=== PATIENT | male | born 1960 | race Caucasian/White ===

== ENCOUNTER 2019-11-20 20:47 | Emergency (ER) | payer OTHER, SELFPAY ==
[2019-11-20 20:48] VITALS: BP 142/96; PULSE 83; RESP 16; TEMP 36.3; O2SAT 96; BMI 22.8
--- NOTE | 2019-11-20 21:09 | ED.DCSUM_ITS ---
- ER Visit Summary Date of Service: 11/20/19 Chief Complaint: Laceration History of Present Illness: The patient is a [address] Dixon. Reports that just prior to coming emerge department he dropped a knife onto his left foot. He was barefoot when he did this. He reports he is a burning pain is 5-1 0 at worst and 3-10 currently. Is worsened by movement and relieved by rest. His tetanus is up-to-date. He denies any paresthesias distally. Physical Examination: Vitals: Stable. Afebrile. General: Well-nourished and well-developed. Head: Normocephalic atraumatic. Neck: Supple, no lymphadenopathy. No JVD. Nontender. Cardiovascular: Regular rate and rhythm. No murmurs. Respiratory: No respiratory distress. Clear to auscultation bilaterally. Abdominal: Soft, nontender, nondistended, normal bowel sounds. No guarding, rebound, or peritoneal signs. Back: Nontender. Extremities: To the top of his left foot over the distal portion of his fourth metatarsal there is a 1.5 cm L-shaped laceration. He is neuro vas intact distal to this., no edema. Skin: Normal color, no rash. Neurologic: Alert and oriented ?3. Cranial nerves II through XII are intact. Normal strength and sensation. Psych: Normal affect. Emergency Department Course and Treatment: Patient refused pain medications. He is resting comfortably. Treatment Plan: Patient be discharged instructions to follow-up with his primary care physician and suture removal in 10 to 14 days. Return to the emergency department for any worsening symptoms. Disposition: To home in improved and stable condition. Impression: 1 1. Laceration left foot, 1.5 cm, repaired. Procedure note: Wound was cleansed with chlorhexidine soap. Anesthetized with 1% lidocaine without epinephrine. Copiously irrigated with normal saline. Wound was explored there is no foreign material present. It was closed with 3 simple interrupted 4- 0 ethilon sutures. The patient tolerated it well. This note was generated with [employer] dictation software. It may contain incorrect words, spelling, and punctuation that were not noted in review of the chart prior to signing ED Disposition - Plan for ED Patient: Disposition: Home or Assisted Living Instructions: LACERATION, Extrem (Suture, Staple or Tape) Referrals: Darryl Dixon [Primary Care Provider] - 10-14 Days suture removal
[2019-11-20 21:48] VITALS: RESP 17
== END 2019-11-20 21:49 | disposition home or self-care (01) ==
PROVIDERS: Emergency Provider Emergency Medicine
DX: S91.312A Laceration without foreign body, left foot, initial encounter (principal); W20.8XXA Other cause of strike by thrown, projected or falling object, initial encounter; F17.210 Nicotine dependence, cigarettes, uncomplicated
CPT/HCPCS: 12001; 99283

== ENCOUNTER 2021-11-22 16:47 | Outpatient (CLI) | payer MEDICARE, SELFPAY | END 2021-11-22 23:59 | disposition short-term general hospital (02) | LOC: LABSPEC 16:48 | PROVIDERS: Visit Provider Nurse Practitioner Family | DX: Z20.822 Contact with and (suspected) exposure to COVID-19 (principal) | CPT/HCPCS: 87635; U0003; U0005 ==

== ENCOUNTER → 2022-02-20 | Outpatient (CLI) | payer BC, SELFPAY ==
[2022-02-20 17:06] LABS: Absolute Lymphocyte Count 1.63 X10^3/uL (0.83-4.51); Absolute Neutrophil Count 4.8 X10^3/uL (2.0-7.7); Basophil# 0.05 X10^3/uL; Basophil% 0.7 % (0-1); Eosinophil# 0.24 X10^3/uL; Eosinophils% 3.3 % (0-5); Hematocrit 51.5 % (40-54); Hemoglobin 17.3 g/dL (13.0-16.5); Lymphocyte # 1.63 X10^3/ul (0.83-4.51); Lymphocyte % 22.1 % (19-41); Mean Corp Hgb Conc 33.6 g/dL (32-36); Mean Corpuscular Hgb 31.4 pg (27.0-32.0); Mean Corpuscular Volume 93.5 fL (80-94); Mean Platelet Vol. 10.9 fl (6.2-12.0); Monocyte# 0.63 X10^3/uL; Monocyte% 8.6 % (0-10); NRBC Flagged by Analyzer 0 % (0-5); Neutrophil # 4.79 X10^3/uL (2.7-7.7); Platelet Count 207 K/mm3 (150-450); RBC Distribution Width CV 12.7 % (11.6-14.6); RBC Distribution Width SD 43.6 fl (35.1-43.9); Red Blood Count 5.51 M/mm3 (4.6-6.2); White Blood Count 7.4 K/mm3 (4.4-11.0)
[2022-02-20 17:28] LABS: Hemoglobin A1c 5.2 % (3.8-5.6)
[2022-02-20 18:29] LABS: Vitamin B12 283 pg/mL (211-911); Vitamin D,25 Hydroxy 27.7 ng/mL
[2022-02-20 19:23] LABS: ALB/GLOB Ratio 1.2 RATIO (0.9-2.4); AST(SGOT) 18 U/L (15-37); Alanine Aminotransfer ALT/SGPT 40 U/L (16-61); Albumin, Serum 4.1 g/dL (3.2-5.0); Alkaline Phosphatase 77 U/L (45-117); Anion Gap 7 (5-15); BUN 20 mg/dL (7-18); BUN/Creat Ratio 20.9 RATIO (10-20); Calcium,Total 9.1 mg/dL (8.5-10.1); Chloride 104 mmol/L (98-107); Cholesterol 172 mg/dL (200); Creatinine, Serum 0.96 mg/dL (0.70-1.30); EST Glomerular Filtration Rate 85 mL/min (>60); Est Glom Filt Rate - Afr Amer 102 mL/min (>60); Globulin 3.3 g/dL (2.2-4.2); Glucose 78 mg/dL (74-106); High Density Lipoprotein 44 mg/dL; Potassium 3.8 mmol/L (3.5-5.1); Protein, Total 7.4 g/dL (6.4-8.2); Sodium Level 140 mmol/L (136-145); Triglycerides 145 mg/dL; Very Low Density Lipoprotein 29 mg/dL (5-40)
[2022-02-20 19:24] LABS: PSA,Total- Diagnostic 1.42 ng/mL (0.0-4.0)
== END | disposition home or self-care (01) ==
PROVIDERS: Referring Provider Nurse Practitioner Family; Visit Provider Nurse Practitioner Family
DX: I10 Essential (primary) hypertension (principal); R53.83 Other fatigue; E66.9 Obesity, unspecified
CPT/HCPCS: 80053; 80061; 82306; 82607; 82746; 83036; 84153; 85025

== ENCOUNTER 2023-01-13 03:22 | Emergency (ER) | payer BC, SELFPAY ==
[2023-01-13 03:24] VITALS: BP 168/108; PULSE 69; RESP 16; TEMP 36.4; O2SAT 98
[2023-01-13 03:26] VITALS: BMI 34.4
--- NOTE | 2023-01-13 03:52 | EX.ED.DYSGE1 ---
HPI History of Present Illness Chief Complaint: Rash Narrative Narrative: Patient is a 62-year-old male who presents to the ER with complaint of rash. He states that he switched to Tide with Oxy clean in the last 1 to 2 weeks. He reports he has done a load of laundry and did not seem to have any issues associated with the new detergent. He states today however he was at work and once he returned home and took off his clothes and showered he noticed he was having redness itching and hives along his legs. He reports that as the time passed the rash got more intense and began to blister and spread up to his abdomen and back. He denies any trouble breathing or swallowing and other than the new detergent denies any exposures PFSH PFS Medical History no medical history Home Medications prednisone 10 mg tablet 10 mg PO DAILY #48 TABLETS 01/13/23 [Rx Last Taken Unknown] Allergy/AdvReac Type Severity Reaction Status Date / Time No Known Allergies Allergy Verified 01/13/23 03:23 Surgical History no surgical history Social History Smoking Status: Current every day smoker tobacco type: cigarettes ROS ROS ED Constitutional Constitutional ED: Denies chills or fever(s) Eyes Eyes: Denies change in vision ENT ENT ED: Denies sore throat Cardiovascular Cardiovascular: Denies chest pain Respiratory/Chest Respiratory/Chest: Denies cough or dyspnea Gastrointestinal Gastrointestinal: Denies abdominal pain, diarrhea, melena, nausea or vomiting Genitourinary Genitourinary ED: Denies dysuria or hematuria Musculoskeletal Musculoskeletal: Denies myalgias Integumentary Reports rash Neurologic Neurologic: Denies headache(s) Hematologic/Lymphatic Hematologic/Lymphatic: Denies easy bleeding or easy bruising EXAM Physical Exam Const Vital Signs: 01/13/23 03:24 Temperature 97.5 F L Temperature Source Temporal Pulse Rate 69 Respiratory Rate 16 Blood Pressure 168/108 H Blood Pressure Mean 128 Pulse Ox 98 Oxygen Delivery Method Room Air Positive well nourished and well developed General Appearance ED: well developed HEENT Reports moist mucous membranes HEENT Narrative: No tongue or lip swelling no oral lesions no airway edema or compromise Eyes PERRL and EOMs intact bilaterally Neck supple Resp normal respiratory effort and clear to auscultation bilaterally Cardio regular rate and regular rhythm Extremity normal to inspection Neuro oriented x3 and CN's II-XII intact bilaterally Sensorium / Orientation: alert Psych mental status grossly normal Skin Skin Narrative: Patient has erythematous blanchable hive-like lesions across his abdomen and chest as well as his lower and upper back. The rash also progresses down the legs from the thighs to the ankles and along the medial posterior aspect of both the left and right thigh and lower leg there are multiple blister formations present draining serous fluid. There is no involvement of the palms or soles. Rashes: rashes noted MDM MDM MDM Narrative Medical decision making narrative: Patient presented to the ER hypertensive but otherwise with stable vitals. He reported a sudden onset rash with only new exposure being a change in detergent. There is concern that this could be an infectious rash or HSP or cellulitis or gout however with the report of him beginning a new detergent the rash being erythematous blanchable and urticarial nature and not showing changes of purpura or involvement of the palms or soles or coalescing lesions I do feel this is all contact dermatitis. He has no signs of respiratory distress or airway compromise and therefore there is no need for work-up. Patient will be placed on a Kenalog shot in the ER and a prednisone taper for the next 12 days secondary to the severe contact dermatitis. He was instructed on return precautions and agrees to return to the hospital if those develop. However at this time as the rash appears more of an inflammatory process and not infectious he is otherwise safe for discharge History & Record Review Discussion w/independent historian: Patient Discharge Plan Triage Chief Complaint: Rash ED Provider: Griffin Roberts Dx/Rx/DC Orders Clinical Impression: Contact dermatitis and other eczema due to detergents Instructions: ED Contact Dermatitis Prescriptions: New prednisone 10 mg tablet 10 mg PO DAILY Qty: 48 0RF Rx Instructions: 6 po qd x 3 days, 4 po qd x 3 days, 2 po qd x 3 days, 1 po qd x 3 days Primary Care Provider: Darryl Dixon Referrals: Darryl Dixon [Primary Care Provider] - Activity Restrictions/Additional Instructions: Your history and exam indicate that your rash is related to an inflammatory process most likely related to your new detergent. Therefore please throw this detergent away and get a hypoallergenic detergent or go back to the previous version you had and rewash all your clothes. Take the steroid as directed to reduce the inflammatory process and after approximately 4 to 7 days you should notice improvement of the rash as long as you are no longer exposed to the offending agent. If you develop a temperature over 100.4 have dark/bloody urine or develop abdominal discomfort or blood in your stool please return for repeat evaluation. Disposition Disposition: Home, Self Care
[2023-01-13] MEDS: Triamcinolone Acetonide 40 MG/ML Vial 80 MG IM (04:02)
[2023-01-13 04:39] VITALS: BP 154/89; PULSE 79; RESP 18; O2SAT 97
== END 2023-01-13 04:40 | disposition home or self-care (01) ==
PROVIDERS: Emergency Provider Emergency Medicine; Visit Provider Emergency Medicine
DX: L24.0 Irritant contact dermatitis due to detergents (principal); F17.210 Nicotine dependence, cigarettes, uncomplicated
CPT/HCPCS: 96372; 99283

== ENCOUNTER → 2023-01-19 | Outpatient (CLI) | payer BC, SELFPAY ==
[2023-01-19 16:08] LABS: PSA,Total - Annual Screen 0.98 ng/mL (0.00-4.00)
[2023-01-19 16:13] LABS: ALB/GLOB Ratio 1.1 RATIO (0.9-2.4); AST(SGOT) 14 U/L (15-37); Alanine Aminotransfer ALT/SGPT 44 U/L (16-61); Albumin, Serum 3.8 g/dL (3.2-5.0); Alkaline Phosphatase 77 U/L (45-117); Anion Gap 9 (5-15); BUN 24 mg/dL (7-18); BUN/Creat Ratio 21.4 RATIO (10-20); CRP < 2.90 mg/L (0.0-3.0); Calcium,Total 9.6 mg/dL (8.5-10.1); Chloride 103 mmol/L (98-107); Cholesterol 184 mg/dL (200); Creatinine, Serum 1.12 mg/dL (0.70-1.30); EST Glomerular Filtration Rate 70 mL/min (>60); Est Glom Filt Rate - Afr Amer 85 mL/min (>60); Globulin 3.4 g/dL (2.2-4.2); Glucose 127 mg/dL (74-106); High Density Lipoprotein 68 mg/dL; Potassium 4.3 mmol/L (3.5-5.1); Protein, Total 7.2 g/dL (6.4-8.2); Sodium Level 140 mmol/L (136-145); Triglycerides 120 mg/dL; Very Low Density Lipoprotein 24 mg/dL (5-40)
[2023-01-19 16:14] LABS: Vitamin B12 328 pg/mL (211-911); Vitamin D,25 Hydroxy 28.7 ng/mL
[2023-01-19 16:22] LABS: Absolute Lymphocyte Count 1.41 X10^3/uL (0.83-4.51); Absolute Neutrophil Count 13.1 X10^3/uL (2.0-7.7); Basophil# 0.08 X10^3/uL; Basophil% 0.5 % (0-1); Eosinophil# 0.14 X10^3/uL; Eosinophils% 0.9 % (0-5); Hematocrit 52.6 % (40-54); Hemoglobin 17.5 g/dL (13.0-16.5); Lymphocyte # 1.41 X10^3/ul (0.83-4.51); Lymphocyte % 8.9 % (19-41); Mean Corp Hgb Conc 33.3 g/dL (32-36); Mean Corpuscular Hgb 30.6 pg (27.0-32.0); Mean Corpuscular Volume 92.1 fL (80-94); Mean Platelet Vol. 10.8 fl (6.2-12.0); Monocyte# 0.74 X10^3/uL; Monocyte% 4.7 % (0-10); NRBC Flagged by Analyzer 0 % (0-5); Neutrophil # 13.14 X10^3/uL (2.7-7.7); Neutrophil % 83.4 % (47-70); Platelet Count 266 K/mm3 (150-450); RBC Distribution Width CV 12.8 % (11.6-14.6); RBC Distribution Width SD 43.4 fl (35.1-43.9); Red Blood Count 5.71 M/mm3 (4.6-6.2); White Blood Count 15.8 K/mm3 (4.4-11.0)
[2023-01-19 16:32] LABS: Erythrocyte Sedimentation Rate 4 mm/hr (0-20)
[2023-01-19 16:47] LABS: Hemoglobin A1c 5.4 % (3.8-5.6)
[2023-01-22 13:08] LABS: B. henselae IgG Negative titer (Neg:<1:320); B. henselae IgM Negative titer (Neg:<1:100); B. quintana IgG Negative titer (Neg:<1:320)
[2023-01-22 15:15] LABS: B. quintana IgM Negative titer (Neg:<1:100)
[2023-01-24 00:07] LABS: Lyme IgG P18 Ab Absent (.); Lyme IgG P23 Ab Absent (.); Lyme IgG P28 Ab Absent (.); Lyme IgG P30 Ab Absent (.); Lyme IgG P39 Ab Absent (.); Lyme IgG P41 Ab Present (.); Lyme IgG P45 Ab Absent (.); Lyme IgG P58 Ab Absent (.); Lyme IgG P66 Ab Absent (.); Lyme IgG P93 Ab Absent (.); Lyme IgM P23 Ab Absent (.); Lyme IgM P39 Ab Absent (.); Lyme IgM P41 Ab Absent (.)
[2023-01-24 09:01] LABS: Lyme IgG WB Interpretation Negative (.); Lyme IgM WB Interpretation Negative (.)
== END | disposition home or self-care (01) ==
PROVIDERS: Visit Provider Nurse Practitioner Family
DX: R21 Rash and other nonspecific skin eruption (principal); R22.42 Localized swelling, mass and lump, left lower limb; M25.69 Stiffness of other specified joint, not elsewhere classified; E55.9 Vitamin D deficiency, unspecified; E53.8 Deficiency of other specified B group vitamins; Z12.5 Encounter for screening for malignant neoplasm of prostate
CPT/HCPCS: 80053; 80061; 82306; 82607; 82746; 83036; 84153; 85025; 85652; 86140; 86611; 86617; G0103

== ENCOUNTER → 2023-01-28 | Outpatient (CLI) | payer BC, SELFPAY ==
[2023-01-28 13:12] LABS: Absolute Lymphocyte Count 1.84 X10^3/uL (0.83-4.51); Absolute Neutrophil Count 9.2 X10^3/uL (2.0-7.7); Basophil% 0.8 % (0-1); Eosinophil# 0.34 X10^3/uL; Eosinophils% 2.8 % (0-5); Hematocrit 52.5 % (40-54); Hemoglobin 17.5 g/dL (13.0-16.5); Lymphocyte # 1.84 X10^3/ul (0.83-4.51); Lymphocyte % 14.9 % (19-41); Mean Corp Hgb Conc 33.3 g/dL (32-36); Mean Corpuscular Hgb 31.3 pg (27.0-32.0); Mean Corpuscular Volume 93.9 fL (80-94); Monocyte# 0.82 X10^3/uL; Monocyte% 6.6 % (0-10); NRBC Flagged by Analyzer 0 % (0-5); Neutrophil # 9.15 X10^3/uL (2.7-7.7); Neutrophil % 74.1 % (47-70); Platelet Count 220 K/mm3 (150-450); RBC Distribution Width CV 13.1 % (11.6-14.6); Red Blood Count 5.59 M/mm3 (4.6-6.2); White Blood Count 12.4 K/mm3 (4.4-11.0)
[2023-01-28 13:28] LABS: Erythrocyte Sedimentation Rate 4 mm/hr (0-20)
== END | disposition home or self-care (01) ==
LOC: LABSPEC 12:41
PROVIDERS: PCP Family Medicine; Referring Provider Nurse Practitioner Family; Visit Provider Nurse Practitioner Family
DX: R21 Rash and other nonspecific skin eruption (principal); R22.42 Localized swelling, mass and lump, left lower limb; M25.69 Stiffness of other specified joint, not elsewhere classified; L03.115 Cellulitis of right lower limb
CPT/HCPCS: 85025; 85652

== ENCOUNTER → 2023-08-04 | Outpatient (CLI) | payer BC, SELFPAY ==
[2023-08-04 19:27] LABS: Absolute Lymphocyte Count 2.29 X10^3/uL (0.83-4.51); Absolute Neutrophil Count 6.2 X10^3/uL (2.0-7.7); Basophil# 0.08 X10^3/uL; Basophil% 0.8 % (0-1); Eosinophil# 0.23 X10^3/uL; Eosinophils% 2.4 % (0-5); Lymphocyte # 2.29 X10^3/ul (0.83-4.51); Lymphocyte % 23.8 % (19-41); Mean Corp Hgb Conc 32.6 g/dL (32-36); Mean Corpuscular Hgb 30.3 pg (27.0-32.0); Mean Corpuscular Volume 92.9 fL (80-94); Mean Platelet Vol. 10.8 fl (6.2-12.0); Monocyte% 8.3 % (0-10); NRBC Flagged by Analyzer 0 % (0-5); Neutrophil # 6.18 X10^3/uL (2.7-7.7); Neutrophil % 64.3 % (47-70); Platelet Count 237 K/mm3 (150-450); RBC Distribution Width CV 12.7 % (11.6-14.6); RBC Distribution Width SD 43.5 fl (35.1-43.9); Red Blood Count 6.07 M/mm3 (4.6-6.2); White Blood Count 9.6 K/mm3 (4.4-11.0)
[2023-08-04 19:43] LABS: ALB/GLOB Ratio 1.1 RATIO (0.9-2.4); AST(SGOT) 15 U/L (15-37); Alanine Aminotransfer ALT/SGPT 43 U/L (16-61); Albumin, Serum 3.7 g/dL (3.2-5.0); Alkaline Phosphatase 88 U/L (45-117); Anion Gap 6 (5-15); BUN 16 mg/dL (7-18); BUN/Creat Ratio 16.1 RATIO (10-20); Calcium,Total 9.8 mg/dL (8.5-10.1); Chloride 103 mmol/L (98-107); Creatinine, Serum 0.99 mg/dL (0.70-1.30); EST Glomerular Filtration Rate 81 mL/min (>60); Est Glom Filt Rate - Afr Amer 98 mL/min (>60); Globulin 3.4 g/dL (2.2-4.2); Glucose 93 mg/dL (74-106); Potassium 4.5 mmol/L (3.5-5.1); Protein, Total 7.1 g/dL (6.4-8.2); Sodium Level 140 mmol/L (136-145)
[2023-08-04 20:00] LABS: Hematocrit 56.4 % (40-54); POSITIVE COUNT NO; POSITIVE DIFFERENTIAL NO; POSITIVE MORPHOLOGY NO
[2023-08-04 20:02] LABS: Hemoglobin 18.4 g/dL (13.0-16.5)
[2023-08-04 20:03] LABS: Anisocytosis RARE; Macrocytosis RARE; Platelet Estimate ADEQUATE (ADEQ); Red Cell Morphology N CHROM NORMAL (NORM C&C)
[2023-08-06 09:55] LABS: Pathologist Review Reviewed
== END | disposition home or self-care (01) ==
PROVIDERS: PCP Family Medicine; Visit Provider Nurse Practitioner Family
DX: Z01.818 Encounter for other preprocedural examination (principal)
CPT/HCPCS: 80053; 85025

== ENCOUNTER → 2023-08-21 | Outpatient (CLI) | payer SELFPAY ==
--- NOTE | 2023-08-21 12:23 | EKG12_ITS ---
Test Reason : SOB,CP Blood Pressure : / mmHG Vent. Rate : 058 BPM Atrial Rate : 058 BPM P-R Int : 144 ms QRS Dur : 102 ms QT Int : 430 ms P-R-T Axes : 029 -08 081 degrees QTc Int : 422 ms Sinus bradycardia Otherwise normal ECG Confirmed by ANTONIO SINGH, AMARJIT ([id number]), news video editor ADRIANA AZEVEDO ([id number]) on 08/25/2023 12:55:29 PM Referred By: Nicolle Reno Confirmed By:TORI ALVAREZ MD
--- NOTE | 2023-08-21 12:24 | ECHOD_ITS ---
Reason For Study: CHEST PAIN, SOB Procedure This was a 2D Doppler, Color Flow transthoracic echocardiogram. Exam performed in department. Left Ventricle Normal LV size. The estimated ejection fraction is 60 %. No evidence for diastolic dysfunction. No regional wall motion abnormalities noted. Right Ventricle Normal RV size. Normal systolic function. Atria Normal left atrium. Normal right atrium. No doppler evidence for ASD. Mitral Valve There is no mitral valve stenosis. No mitral valve insufficiency. Tricuspid Valve There is no tricuspid stenosis. Unable to estimate RV systolic pressure due to inadequate jet, pulmonary artery pressure probably normal. Aortic Valve Trisinus/trileaflet aortic valve. There is no aortic stenosis. No aortic valve insufficiency. Pulmonic Valve There is no pulmonic valvular stenosis. Trivial pulmonic valve insufficiency. Great Vessels Normal aortic root. Pericardium/Pleural No pericardial effusion. MMode/2D Measurements & Calculations LVIDd: 5.7 cm IVSd: 1.0 cm Ao root diam: 3.5 cm LVIDs: 3.7 cm LVPWd: 1.0 cm FS: 35.2 % LAV(MOD-bp): 52.2 ml LVAd ap4: 32.6 cm2 LVAd ap2: 30.6 cm2 LAV(MOD-bp) Indexed: 21.4 ml/m2 LVLd ap4: 8.5 cm LVLd ap2: 8.7 cm LAV(MOD-sp2): 58.1 ml EDV(MOD-sp4): 104.3 ml EDV(MOD-sp2): 96.3 ml LAV(MOD-sp4): 45.0 ml EDV(sp4-el): 106.0 ml EDV(sp2-el): 91.5 ml LVAs ap4: 17.0 cm2 LVAs ap2: 16.7 cm2 LVLs ap4: 6.9 cm LVLs ap2: 6.4 cm ESV(MOD-sp4): 36.7 ml ESV(MOD-sp2): 38.0 ml ESV(sp4-el): 35.6 ml ESV(sp2-el): 36.9 ml EF(MOD-sp4): 64.8 % EF(MOD-sp2): 60.6 % EF(sp4-el): 66.4 % SV(MOD-sp4): 67.6 ml SV(MOD-sp2): 58.4 ml SV(sp4-el): 70.3 ml LA dimension(2D): 3.7 cm LA A4 area: 16.9 cm2 RA A4 area: 15.2 cm2 TAPSE: 2.6 cm Time Measurements MV dec time: 0.22 sec Doppler Measurements & Calculations MV E max chan: 64.5 cm/sec Lat Peak E' Chan: 8.8 cm/sec Med Peak E' Chan: 7.5 cm/sec MV A max chan: 64.9 cm/sec E/E' lat: 7.4 E/E' med: 8.6 MV E/A: 0.99 MV V2 max: 71.2 cm/sec MV P1/2t max chan: 73.5 cm/sec Ao V2 max: 105.3 cm/sec MV max P.0 mmHg MV P1/2t: 71.6 msec Ao max P.5 mmHg MV V2 mean: 36.9 cm/sec MV dec slope: 300.7 cm/sec2 Ao V2 mean: 73.2 cm/sec MV mean P.65 mmHg Ao mean P.4 mmHg MV V2 VTI: 22.7 cm MVA(P1/2t): 3.1 cm2 Ao V2 VTI: 25.0 cm AV (velocity ratio): 0.87 LV V1 max: 98.8 cm/sec PA V2 max: 82.5 cm/sec LV V1 max P.9 mmHg PA V2 mean: 65.0 cm/sec LV V1 mean P.0 mmHg LV V1 mean: 65.6 cm/sec LV V1 VTI: 21.9 cm ECHO/Echo Complete Interpretation Summary The estimated ejection fraction is 60 %. No evidence for diastolic dysfunction. Ordering Physician: Nicolle Reno Referring Physician: Darryl Dixon Performed By: Arlene Sierra, TRISTAN, RVT
--- NOTE | 2023-08-21 12:46 | RAD_ITS ---
STUDY: X-RAY CHEST REASON FOR EXAM: Male, 62 years old. Shortness of breath. TECHNIQUE: Frontal and lateral views of the chest. COMPARISON: None. FINDINGS: Mild hyperinflation. There is no demonstrated pleural abnormality. Normal size heart. Normal mediastinum and [place]. Normal visualized pulmonary arteries. Normal visualized aortic arch and descending thoracic aorta. Normal visualized thoracic spine. Normal visualized ribs, clavicles, and shoulders. No abnormality of the visualized soft tissue structures of the upper abdomen. RAD/Chest PA and Lateral IMPRESSION: Mild hyperinflation with no acute or active cardiopulmonary disease Electronically Signed: Reinier Camilo MD at 13:49 EDT ,
== END | disposition home or self-care (01) ==
PROVIDERS: PCP Family Medicine; Referring Provider Nurse Practitioner Family; Visit Provider Nurse Practitioner Family
DX: R06.02 Shortness of breath (principal); R07.9 Chest pain, unspecified
CPT/HCPCS: 71046; 93005; 93306